=== PATIENT | male | born 1945 | race Caucasian/White ===

== ENCOUNTER 2017-02-26 11:22 | Emergency (ER) | payer OTHER ==
[~2017-02-26] VITALS: Ht 175.3 cm; Wt 72.8 kg
[~2017-02-26 11:22] MED LIST: ALDA2525 PO; CLOP75 PO; GLUCTAB OR; HYZA100T6 PO; PREV30CA36 PO; [UNRECOGNIZED DRUG - SUPPLY]; lancets; test strips
[2017-02-26 11:32] VITALS: BP 157/85; PULSE 76; RESP 16; TEMP 98.2; O2SAT 100
[2017-02-26 11:47] VITALS: BP 172/82; PULSE 74; RESP 18; O2SAT 97
[2017-02-26] MEDS ORDERED: PREV30CA11 PO (11:47)
[2017-02-26] MEDS ORDERED: METF850T PO (11:47)
[2017-02-26] MEDS ORDERED: HYDR25TA5 PO (11:47)
[2017-02-26] MEDS ORDERED: LOSA100T PO (11:47)
[2017-02-26] MEDS ORDERED: PLAV75TA29 PO (11:47)
--- NOTE | 2017-02-26 11:57 | PD ---
HPI Chief Complaint: Hypertension Time Seen by Provider: 11:47 Travel History International Travel<30 days: No Contact w/Intl Traveler<30days: No Traveled to known affect area: No History of Present Illness HPI This patient has hypertension and is been having some elevated pressures. He is under stress as his recently had a heart attack. He is not having any chest pain or palpitations. Some severity is mild. Current blood pressure 172 systolic PFSH Past Medical History Hx Anticoagulant Therapy: Yes (plavix) Cancer: No Cerebrovascular Accident: Yes (tia) Diabetes: Yes Endocrine: No Genitourinary: No Hepatitis: No Hiatal Hernia: No Immune Disorder: No Musculoskeletal: No Neurologic: No Psychiatric: No Reproductive: No Respiratory: Yes (emphysma) Thyroid Disease: No Past Surgical History Abdominal Surgery: No AICD: No Cardiac Surgery: No Ear Surgery: No Endocrine Surgery: No Eye Surgery: No Genitourinary Surgery: No Gynecologic Surgery: No Joint Replacement: No Oral Surgery: No Pacemaker: No Thoracic Surgery: No Social History Alcohol Use: No Tobacco Use: Yes Substance Use: No Allergies-Medications (Allergen,Severity, Reaction): Coded Allergies: Penicillin (Verified Allergy, Unknown, hives, 02/26/17) Reported Meds & Prescriptions Reported Meds & Active Scripts Active Reported Metformin (Metformin HCl) 850 Mg Tab 850 Mg PO BIDPC With meals Prevacid (Lansoprazole) 30 Mg Capdr 30 Mg PO DAILY Hydrochlorothiazide 25 Mg Tab 25 Mg PO DAILY Losartan (Losartan Potassium) 100 Mg Tab 100 Mg PO DAILY Plavix (Clopidogrel Bisulfate) 75 Mg Tab 75 Mg PO DAILY Review of Systems HENT: No: Headaches Cardiovascular: No: Chest Pain or Discomfort Respiratory: No: Cough Physical Exam Narrative GENERAL: Well-nourished, well-developed patient in no apparent distress. SKIN: Focused skin assessment reveals no rash and nodules. Skin is Warm and dry. HEAD: Atraumatic. Normocephalic. EYES: Pupils equal and round. No scleral icterus. No injection or drainage. ENT: No nasal bleeding or discharge. Mucous membranes pink and moist. NECK: Trachea midline. No JVD. CARDIOVASCULAR: Regular rate and rhythm. No murmur appreciated. RESPIRATORY: No accessory muscle use. Clear to auscultation. Breath sounds equal bilaterally. GASTROINTESTINAL: Abdomen soft, non-tender, nondistended. Hepatic and splenic margins not palpable. MUSCULOSKELETAL: No obvious deformities. No clubbing. No cyanosis. No edema. NEUROLOGICAL: Awake and alert. No obvious cranial nerve deficits. Motor grossly within normal limits. Normal speech. PSYCHIATRIC: Appropriate mood and affect; insight and judgment normal. Data Data Last Documented VS Vital Signs Date Time Temp Pulse Resp B/P Pulse Ox O2 Delivery O2 Flow Rate FiO2 02/26/17 11:47 74 18 172/82 97 Room Air 02/26/17 11:32 98.2 MDM Medical Decision Making Medical Screen Exam Complete: Yes Emergency Medical Condition: Yes Medical Record Reviewed: Yes Differential Diagnosis Elevated blood pressure, hypertensive urgency, anxiety Narrative Course I have reviewed the patient's electronic medical record. Patient has elevated blood pressure but not having any symptoms and has normal exam I advised him to check it daily and follow up with primary care He does take losartan daily which he took this morning Diagnosis Primary Impression: HYPERTENSION NOS Additional Instructions: The patient was advised to follow up with their physician and return if they worsen. Check and record blood pressure daily Med/Other Pt SpecificInfo: Other Disposition: 01 DISCHARGE HOME Condition: Stable Harish Hernandez MD Feb 26, 2017 11:57
== END 2017-02-26 12:24 | disposition home or self-care (01) ==
LOC: PHED 11:22
DX: I10 Essential (primary) hypertension (principal); Z86.73 Personal history of transient ischemic attack (TIA), and cerebral infarction without residual deficits; E11.9 Type 2 diabetes mellitus without complications; Z79.02 Long term (current) use of antithrombotics/antiplatelets; Z72.0 Tobacco use
CPT/HCPCS: 99281

== ENCOUNTER → 2017-03-22 | Outpatient (CLI) | payer MEDICARE ==
[~2017-03-22] MED LIST changes: -ALDA2525 PO; -CLOP75 PO; -GLUCTAB OR; +HYDR25TA5 PO; -HYZA100T6 PO; +LOSA100T PO; +METF850T PO; +PLAV75TA29 PO; +PREV30CA11 PO; -PREV30CA36 PO; -[UNRECOGNIZED DRUG - SUPPLY]; -lancets; -test strips
[2017-03-22 10:05] LABS: BLOOD GAS CARBOXYHEMOGLOBIN 3.1 % (0-4); BLOOD GAS HCO3 24 mmol/L (22-26); BLOOD GAS METHEMOGLOBIN 1.2 % (0-2); BLOOD GAS O2 HGB SATURATION 92 % (90-100); BLOOD GAS OXYGEN CONTENT 19.3 Vol % (12.0-20.0); BLOOD GAS PCO2 35 mmHg (38-42); BLOOD GAS PO2 85 mmHg (61-120); BLOOD GAS TOTAL HGB 14.8 G/DL (12.0-16.0); TEMP CORR TO 98.6
[2017-03-22 10:06] LABS: CRITICAL VALUE NO; DRAW SITE RT RADIAL; FIO2 21 %; NUMBER OF ARTERIAL PUNCTURES 1; STAT NO; ULNAR PULSE PRESENT
--- NOTE | 2017-04-02 08:47 | RSPPFT ---
DATE OF PROCEDURE: 03/22/17 COMMENTS: Spirometry with FVC of 3.6 predicted 3.8, FEV1 of 2.1 predicted 3.0, FEV1/FVC ratio 60% predicted 78%. Lung volumes show air trapping with RV at 3.3 predicted 2.4. DLCO is 67% of predicted. IMPRESSION: On the basis of the above, patient has an obstructive lung defect with no responsiveness to acutely inhaled bronchodilator. Air trapping is present. DLCO is decreased.
== END ==
LOC: HRSP 09:00
PROVIDERS: ATTEND Internal Medicine Pulmonary Disease
DX: J98.4 Other disorders of lung (principal)
CPT/HCPCS: 36600; 82805; 94060; 94620; 94726; 94729

== ENCOUNTER 2017-05-05 20:15 | Emergency (ER) | payer MEDICARE ==
[~2017-05-05] VITALS: Ht 175.3 cm; Wt 73.0 kg
[2017-05-05 20:24] VITALS: BP 204/72; PULSE 74; RESP 20; TEMP 98.5; O2SAT 97
[2017-05-05] MEDS ORDERED: LIPI20TA PO (21:21)
[2017-05-05 21:22] VITALS: BP 208/93; PULSE 61; RESP 18; O2SAT 96
--- NOTE | 2017-05-05 21:25 | PD ---
HPI Chief Complaint: Hypertension Time Seen by Provider: 21:20 Travel History International Travel<30 days: No Contact w/Intl Traveler<30days: No Traveled to known affect area: No History of Present Illness HPI The patient is a 71-year-old male that complains of elevated blood pressure at home. He states he been stressed out the last few days and took his blood pressure at [facility] and it was elevated systolically slightly 210/74. He denies any focal neurologic change, headache, chest pain, shortness of breath, severe abdominal pain. He does smoke one pack a day. He is currently being worked up for a lung nodule and they are to remove this in May. He does have a history of metformin controlled diabetes. PFSH Past Medical History Hx Anticoagulant Therapy: Yes (plavix) Anxiety: Yes Cancer: No COPD: Yes Cerebrovascular Accident: Yes Diabetes: Yes Diminished Hearing: No Endocrine: No Gastrointestinal Disorders: Yes (ulcers) GERD: Yes Genitourinary: No Hepatitis: No Hiatal Hernia: No Hypertension: Yes Immune Disorder: No Musculoskeletal: No Neurologic: No Psychiatric: No Reproductive: No Respiratory: Yes (emphysma) Immunizations Current: Yes Thyroid Disease: No Past Surgical History Abdominal Surgery: No AICD: No Cardiac Surgery: No Ear Surgery: No Endocrine Surgery: No Eye Surgery: No Genitourinary Surgery: No Gynecologic Surgery: No Joint Replacement: No Neurologic Surgery: Yes Oral Surgery: No Pacemaker: No Thoracic Surgery: No Tonsillectomy: Yes Other Surgery: Yes (LUNG BX) Social History Alcohol Use: No Tobacco Use: Yes Substance Use: No Allergies-Medications (Allergen,Severity, Reaction): Coded Allergies: Penicillin (Verified Allergy, Unknown, hives, 05/05/17) Reported Meds & Prescriptions Reported Meds & Active Scripts Active Reported Lipitor (Atorvastatin Calcium) 20 Mg Tab 20 Mg PO HS Metformin (Metformin HCl) 850 Mg Tab 850 Mg PO BIDPC With meals Prevacid (Lansoprazole) 30 Mg Capdr 30 Mg PO DAILY Hydrochlorothiazide 25 Mg Tab 25 Mg PO DAILY Losartan (Losartan Potassium) 100 Mg Tab 100 Mg PO DAILY Plavix (Clopidogrel Bisulfate) 75 Mg Tab 75 Mg PO DAILY Review of Systems Except as stated in HPI: all other systems reviewed are Neg Physical Exam Narrative GENERAL: The patient is alert, oriented 3 in no apparent distress. He is slightly anxious. His vital signs show blood pressure 204/72 but otherwise normal. SKIN: Focused skin assessment warm/dry. HEAD: Atraumatic. Normocephalic. EYES: Pupils equal and round. No scleral icterus. No injection or drainage. ENT: No nasal bleeding or discharge. Mucous membranes pink and moist. NECK: Trachea midline. No JVD. CARDIOVASCULAR: Regular rate and rhythm. No murmur appreciated. RESPIRATORY: No accessory muscle use. Clear to auscultation. Breath sounds equal bilaterally. GASTROINTESTINAL: Abdomen soft, non-tender, nondistended. Hepatic and splenic margins not palpable. MUSCULOSKELETAL: No obvious deformities. No clubbing. No cyanosis. No edema. NEUROLOGICAL: Awake and alert. No obvious cranial nerve deficits. Motor grossly within normal limits. Normal speech. PSYCHIATRIC: The patient appears slightly anxious; insight and judgment normal. Data Data Last Documented VS Vital Signs Date Time Temp Pulse Resp B/P Pulse Ox O2 Delivery O2 Flow Rate FiO2 05/05/17 21:22 96 Room Air 05/05/17 21:22 61 18 208/93 05/05/17 20:24 98.5 Orders Electrocardiogram (05/05/17 21:25) Bedside Glucose MAGALIS.AC&HS (05/05/17 21:25) MDM Medical Decision Making Medical Screen Exam Complete: Yes Emergency Medical Condition: Yes Medical Record Reviewed: Yes Interpretation(s) The [id number] blood glucose is 118. The EKG shows sinus bradycardia with a rate of [address] elevation or depression. Differential Diagnosis Hypertensive urgency, asymptomatic blood pressure elevation, anxiety, diabetes mellitus poor control, cardiac dysrhythmiaunlikely Narrative Course The patient appears to have asymptomatic blood pressure elevation. The patient has a normal diastolic blood pressure in the systolic is affected. This may be from anxiety or it may need a reevaluation of his blood pressure medications from his primary care physician. I am reluctant to change his blood pressure medication based on these readings tonight. Diagnosis Primary Impression: Elevated blood pressure reading Additional Instructions: As we discussed, follow-up with his primary care physician so that he can reevaluate the need for blood pressure medication change. Med/Other Pt SpecificInfo: No Change to Meds Disposition: 01 DISCHARGE HOME Condition: Stable Hector Lanza MD May 05, 2017 21:25
[2017-05-05 22:10] VITALS: BP 197/97
--- NOTE | 2017-05-06 16:27 | EKG ---
Date Performed: 05/05/2017 Time Performed: 21:59:53 PTAGE: 71 years EKG: SINUS BRADYCARDIA BORDERLINE ECG NO PREVIOUS TRACING DOCTOR: Reina Matthews Interpretating Date/Time 05/06/2017 16:25:11
== END 2017-05-05 22:16 | disposition home or self-care (01) ==
LOC: PHED 20:15
DX: I10 Essential (primary) hypertension (principal); R94.31 Abnormal electrocardiogram [ECG] [EKG]; R91.1 Solitary pulmonary nodule; E11.9 Type 2 diabetes mellitus without complications; F17.200 Nicotine dependence, unspecified, uncomplicated; Z79.84 Long term (current) use of oral hypoglycemic drugs; Z79.01 Long term (current) use of anticoagulants; Z86.59 Personal history of other mental and behavioral disorders; Z87.09 Personal history of other diseases of the respiratory system; Z87.19 Personal history of other diseases of the digestive system
CPT/HCPCS: 93005; 99283